=== PATIENT | male | born 1985 | race African-American/Black ===

== ENCOUNTER 2021-01-26 16:24 | Emergency (ER) | payer SELFPAY ==
[2021-01-26] MEDS ORDERED: Ketorolac Tromethamine 30 MG/ML VIAL ONE (17:12)
== END 2021-01-26 22:43 | disposition home or self-care (01) ==
LOC: ERS 16:24
DX: R07.89 Other chest pain (principal); K29.70 Gastritis, unspecified, without bleeding; K43.9 Ventral hernia without obstruction or gangrene; F17.210 Nicotine dependence, cigarettes, uncomplicated
CPT/HCPCS: 36415; 71045; 93005; 96372; J1885